=== PATIENT | female | born 1975 | race Caucasian/White ===

== ENCOUNTER 2017-02-26 15:20 | Emergency (ER) | payer OTHER ==
[~2017-02-26] VITALS: Ht 167.6 cm; Wt 78.6 kg
[2017-02-26 15:30] VITALS: BP 109/67
== END 2017-02-26 17:30 | disposition home or self-care (01) ==
LOC: EME 15:20 → EDSEX 15:20 → EME 17:30
PROC: 2W3CX1Z Immobilization of Right Lower Arm using Splint (ICD-10-PCS; principal; 2017-02-26)
DX: S63.501A Unspecified sprain of right wrist, initial encounter (principal); W18.30XA Fall on same level, unspecified, initial encounter
CPT/HCPCS: 73110; 73140; 99281; 99285